=== PATIENT | male | born 1970 | race American Indian/Alaskan Native ===

== ENCOUNTER 2020-08-28 10:20 | Outpatient (CLI) | payer OTHER ==
--- NOTE | 2020-08-28 12:59 | XRay Report ---
LEFT KNEE 3 VIEW(S) INDICATION / CLINICAL INFORMATION: LEFT KNEE PAIN COMPARISON: None available. FINDINGS: BONES / JOINT(S): No acute fracture or subluxation. Mild tricompartment arthritis. No significant rima nt effusion. SOFT TISSUES: No significant abnormality. ADDITIONAL FINDINGS: None. IMPRESSION: Mild tricompartmental osteoarthritis of the left knee. No acute process. Signer Name: Luis Carlos Haro MD Signed: 08/28/2020 12:55 PM Workstation Name: [id number]
== END 2020-08-28 10:21 | disposition home or self-care (01) ==
LOC: XRAY 10:20
DX: M17.12 Unilateral primary osteoarthritis, left knee (principal)